=== PATIENT | female | born 1980 | race Hispanic/Latino ===

== ENCOUNTER → 2018-05-04 10:10 | Outpatient (REF) | payer BC, SELFPAY ==
--- NOTE | 2018-05-04 | DI.MG.S_ITS ---
BILATERAL DIGITAL SCREENING MAMMOGRAM 3D/2D WITH CAD: 05/04/2018 CLINICAL: Routine screening. Family history of breast cancer. Comparison is made to exams dated: 06/18/2015 mammogram and 12/11/2010 mammogram - [facility]. The tissue of both breasts is heterogeneously dense. This may lower the sensitivity of mammography. Current study was also evaluated with a Computer Aided Detection (CAD) system. No significant masses, calcifications, or other findings are seen in either breast. There has been no significant interval change. IMPRESSION: NEGATIVE There is no mammographic evidence of malignancy. A 1 year screening mammogram is recommended. NOTE: For mammograms, a report in lay terms will be sent to the patient. Approximately 15% of breast malignancies will not be visualized mammographically. In the management of a palpable breast mass, a negative mammogram must not discourage biopsy of a clinically suspicious lesion. Electronically Signed By: Christiana urena/tina:05/04/2018 10:46:16 copy to: PETEY GREEN letter sent: Normal Exam ACR BI-RADS Category 1: Negative 3341F
== END ==
LOC: MAMMO 10:10
PROVIDERS: Visit Provider Obstetrics & Gynecology
DX: Z12.31 Encounter for screening mammogram for malignant neoplasm of breast (principal); Z80.3 Family history of malignant neoplasm of breast
CPT/HCPCS: 77063; 77067

== ENCOUNTER 2019-10-02 15:41 | Emergency (ER) | payer SELFPAY ==
[2019-10-02 16:04] VITALS: BP 147/87; PULSE 97; RESP 15; TEMP 36.7; O2SAT 96; BMI 24.6
[2019-10-02 16:18] LABS: RBC Urine None Seen (0-5/HPF); WBC Urine None Seen (0-5/HPF)
[2019-10-02 16:48] LABS: Appearance Urine UA SL CLOUDY; Bilirubin Urine UA NEGATIVE (NEGATIVE); Color Urine UA YELLOW; Glucose Urine UA NEGATIVE (Negative); Ketones Urine UA 1+ (NEGATIVE); Leukocyte Esterase Urine UA NEGATIVE (NEGATIVE); Nitrite Urine UA NEGATIVE (Negative); Occult Blood Urine UA TRACE-INTACT (Negative); Protein Urine UA NEGATIVE (Negative); Urobilinogen Urine UA 0.2 E.U./dL (0.2); pH Urine UA 7.5 (4.5-8.0)
[2019-10-02 17:00] LABS: Amorphous Sediment Urine 2+; Bacteria Urine Occasional (0-1); Squamous Epithelial Cell Urine 1-5 /HPF (0-5/HPF); Transitional Epi Cells Urine 0-1/HPF (0-5/HPF)
[2019-10-02 17:01] LABS: Culture Indicated Urine Cult Not Indicated
--- NOTE | 2019-10-02 17:17 | ED.RECABL ---
HPI - Recheck/Abnormal Lab/Rx General Chief Complaint: Recheck/Abnormal Lab/Rx Stated Complaint: possible UTI,given medicine,not getting better Time Seen by Provider: 10/02/19 16:19 Source: patient and family Mode of arrival: Ambulatory Limitations: language barrier History of Present Illness HPI narrative: Patient comes emergency department complaining of her stomach feeling hot and mild nausea since being diagnosed with vaginal candidiasis and bacterial vaginosis, and started on Diflucan and metronidazole. Patient states she was having these symptoms a little bit before starting the medications, but that it seems a lot worse now. Patient denies any fevers or chills. She states her original symptoms of left lower quadrant abdominal pain and vaginal itching are actually improving. She denies any dysuria. She has been on her medications for the last 2 days. Patient states that she does not have any pain or nausea right at this moment--just a feeling of her stomach being ?hot?. She has not been taking the omeprazole she was prescribed. Patient does not have any history of ulcers. She is otherwise healthy. No other complaints at this time. Related Data Previous Rx's Medication Instructions Recorded miconazole nitrate [Micatin] 1 danitza TP BID #14 gm 08/06/17 ondansetron 4 mg PO Q6H PRN #10 tab 10/02/19 Allergies Allergy/AdvReac Type Severity Reaction Status Date / Time No Known Drug Allergies Allergy Verified 10/02/19 16:03 Review of Systems Constitutional Constitutional: Denies chills, Denies fatigue, Denies fever(s), Denies frequent falls, Denies lethargy and Denies weakness Eyes Eyes: Denies change in vision, Denies eye discharge, Denies irritation and Denies loss of vision ENT Ears, Nose, Mouth, and Throat: Denies change in voice, Denies dizziness, Denies neck pain, Denies sore throat and Denies throat swelling Cardiovascular Cardiovascular: Denies chest pain, Denies irregular heart rhythm, Denies lightheadedness, Denies palpitations, Denies dyspnea, Denies dyspnea on exertion and Denies orthopnea Respiratory Respiratory: Denies cough, Denies dyspnea, Denies dyspnea on exertion and Denies wheezing Gastrointestinal Gastrointestinal: Reports abdominal pain (Stomach feeling ?hot?), Denies change in bowel habits, Denies diarrhea, Reports nausea and Denies vomiting Genitourinary Genitourinary: Denies hematuria, Denies flank pain, Denies urinary incontinence and Denies urinary urgency Musculoskeletal Musculoskeletal: Denies back pain, Denies muscle weakness, Denies neck pain, Denies numbness and Denies tingling Integumentary/Breasts Skin/Breast: Denies pruritus, Denies erythema, Denies rash and Denies wounds Neurologic Neurologic: Denies behavioral changes, Denies confusion, Denies dizziness, Denies frequent falls, Denies loss of vision, Denies numbness, Denies tingling and Denies weakness Psychiatric Psychiatric: Denies anxiety, Denies behavioral changes, Denies confusion, Denies depression, Denies homicidal ideation and Denies suicidal ideation Endocrine Endocrine: Denies fatigue, Denies flushing and Denies palpitations Hematologic/Lymphatic Hematologic/Lymphatic: Denies easy bruising Allergic/Immunologic Allergic/Immunologic: Denies urticaria, Denies throat swelling and Denies wheezing Patient History Medical History (Updated 10/02/19 @ 17:21 by Britni Alvarado MD) Healthy adult (Acute) Social History (Updated 10/02/19 @ 17:21 by Britni Alvarado MD) Smoking Status: Never smoker Exam Initial Vital Signs Initial Vital Signs: Vital Signs Temperature 98.0 F 10/02/19 16:04 Pulse Rate 97 H 10/02/19 16:04 Respiratory Rate 15 10/02/19 16:04 Blood Pressure 147/87 H 10/02/19 16:04 Pulse Oximetry 96 10/02/19 16:04 Const General: cooperative and well developed Nutritional Appearance: well nourished Orientation: alert, awake, oriented x3 and not confused [facility] Head: normocephalic and atraumatic Ears: external ears normal and TM's normal bilaterally Nose: external nose normal and No nasal discharge Face and sinus: sinuses nontender, face symmetric, no sinus tenderness and No dry mucous membranes Mouth: oral mucosae normal and moist mucous membranes Teeth and gingiva: dentition normal Throat: tonsils normal and uvula midline Eyes General: appearance normal, both eyes and all related structures Eyelids: eyelids normal Conjunctivae: conjunctivae normal Sclera: sclerae normal Pupils: PERRL EOM: EOM intact bilaterally Neck Neck: normal visual inspection, trachea midline, No lymphadenopathy, No midline deformity and No JVD Lymphatic: No lymphedema Chest Chest: normal inspection of the chest Resp Effort & Inspection: normal respiratory effort, able to speak in complete sentences, no respiratory distress and no use of accessory muscles Auscultation: clear to auscultation bilaterally, no rales, no rhonchi and no wheezes Cardio Rate: regular rate Rhythm: regular rhythm Heart Sounds: no click, no gallops, no murmurs and no rubs Pulses: normal peripheral pulses GI Inspection: non-distended Palpation: soft, no hepatosplenomegaly, No guarding, No pulsatile mass and No tender Back/Spine/Pelvis Back: No CVA tenderness Cervical Spine: cervical ROM normal and No pain with cervical ROM Thoracic/Lumbar Spine: thoracic and lumbar spine normal to inspection Skin General: no rashes or lesions noted, No jaundice and No petechiae Neuro General: alert, oriented x3, gait normal and no focal motor deficits Speech: speech normal Extrem General: full ROM, no clubbing, cyanosis or edema, no pedal edema and no calf tenderness Psych Appearance: well kempt Mental Status: mental status grossly normal Attitude: cooperative Thought Content: normal and suicidality Judgment: judgment good Course Course Course Narrative: I had a very long discussion with this patient with her brother translating, as patient is [place]-speaking only. I explained to her that the infections that she has can cause some of the stomach upset, but in addition, is very common for antibiotics to cause some digestive system side effects, as well. I have reassured the patient that once she finishes her courses of antibiotics, her stomach symptoms should be expected to down. We have discussed that it is important for the patient to take her omeprazole along with the antibiotics to help mitigate these side effects. I have also discussed with her that she can get Maalox over the counter, and may also use yogurt to act as a probiotic and help soothe her stomach, as well. I do not find any evidence of worsening infection in the patient. Her symptoms are actually mildly improving with regard to the candidiasis and bacterial vaginosis. We have discussed home management of the symptoms, as well as the usual indications for return. Orders Ordered: ED Orders 10/02/19 16:16 Urinalysis and Microscopic Stat Vital Signs Vital signs: Vital Signs - 8 hr 10/02/19 16:04 Temperature 98.0 F Pulse Rate 97 H Respiratory Rate 15 Blood Pressure 147/87 H Pulse Oximetry 96 MDM - Recheck/Abnormal Lab/Rx Medical Records Attestation: I reviewed the patient's medical records. Lab Data Attestation: I reviewed the patient's lab results. Labs: Lab Results 10/02/19 Range/Units 16:16 Urine Color Yellow Urine Appearance Sl cloudy Urine pH 7.5 (4.5-8.0) Ur Specific Fil[place] 1.020 (1.000-1.035) Urine Protein Negative (Negative) Urine Glucose (UA) Negative (Negative) g/dL Urine Ketones 1+ H (NEGATIVE) Urine Occult Blood Trace-intact (Negative) Urine Nitrate Negative (Negative) Urine Bilirubin Negative (NEGATIVE) Urine Urobilinogen 0.2 (0.2) E.U./dL Ur Leukocyte Esterase Negative (NEGATIVE) Urine RBC None seen (0-5/HPF) Urine WBC None seen (0-5/HPF) Ur Squamous Epith Cells 1-5 /hpf (0-5/HPF) Ur Transition Epith Cell 0-1/hpf (0-5/HPF) Amorphous Sediment 2+ Urine Bacteria Occasional (0-1) (None) Ur Culture Indicated? Cult not indicated Discharge Plan Departure Patient Disposition: Home Clinical Impression: Adverse drug effect Qualifiers: Encounter type: initial encounter Qualified Code(s): T50.905A - Adverse effect of unspecified drugs, medicaments and biological substances, initial encounter Discharge Date/Time: 10/02/19 17:23 Instructions: DI for Adverse Drug Reaction -- GI Intolerance Activity Restrictions/Additional Instructions: It is very common to experience somewhat of an upset stomach when you are on antibiotics. You need to finish your antibiotics, and you will most likely have an upset stomach until the antibiotics are done. However, you can expect that your stomach will get better in the next few days after you finish the antibiotics. You may take the nausea medication and antacid medicine to help with your stomach symptoms. You may also take Maalox or Mylanta [id number] to help with your stomach, also.. Prescriptions: New ondansetron 4 mg tablet,disintegrating 4 mg PO Q6H PRN (Reason: nausea and vomiting) Qty: 10 RF: 0 No Action miconazole nitrate [Micatin] 2 % cream 1 danitza TP BID Qty: 14 RF: 2
[2019-10-02 17:21] VITALS: BP 94/64; PULSE 62; RESP 15; O2SAT 99
== END 2019-10-02 17:23 | disposition home or self-care (01) ==
PROVIDERS: Emergency Provider Emergency Medicine
DX: T78.40XA Allergy, unspecified, initial encounter (principal); T50.905A Adverse effect of unspecified drugs, medicaments and biological substances, initial encounter
CPT/HCPCS: 81001; 99282

== ENCOUNTER → 2020-05-14 16:56 | Outpatient (CLI) | payer BC, SELFPAY ==
--- NOTE | 2020-05-14 17:07 | DI.MG.S_ITS ---
BILATERAL DIGITAL SCREENING MAMMOGRAM 3D/2D WITH CAD: 05/14/2020 CLINICAL: Routine screening. Family history of breast cancer. Comparison is made to exams dated: 05/04/2018 mammogram - [facility], 06/18/2015 mammogram, and 12/11/2010 mammogram - [facility]. The tissue of both breasts is extremely dense, which lowers the sensitivity of mammography. Current study was also evaluated with a Computer Aided Detection (CAD) system. No significant masses, calcifications, or other findings are seen in either breast. There has been no significant interval change. IMPRESSION: NEGATIVE There is no mammographic evidence of malignancy. A 1 year screening mammogram is recommended. This exam was interpreted at Station ID: [id number]. NOTE: For mammograms, a report in lay terms will be sent to the patient. Approximately 15% of breast malignancies will not be visualized mammographically. In the management of a palpable breast mass, a negative mammogram must not discourage biopsy of a clinically suspicious lesion. Electronically Signed By: Trenton pantoja/tina:05/15/2020 08:20:59 letter sent: Normal Exam ACR BI-RADS Category 1: Negative 3341F
== END ==
PROVIDERS: Referring Provider Pediatrics Pediatric Rheumatology; Visit Provider Pediatrics Pediatric Rheumatology
DX: Z12.31 Encounter for screening mammogram for malignant neoplasm of breast (principal); Z80.3 Family history of malignant neoplasm of breast
CPT/HCPCS: 77063; 77067

== ENCOUNTER 2024-08-31 18:43 | Emergency (ER) | payer OTHER, MEDICAID, SELFPAY ==
[2024-08-31 19:33] VITALS: BP 146/86; PULSE 100; RESP 17; TEMP 36.3; O2SAT 100
[2024-08-31 22:00] VITALS: BP 118/76; PULSE 77; RESP 18; TEMP 36.3; O2SAT 98
--- NOTE | 2024-09-01 01:49 | ED.EXTPRO ---
HPI - Extremity Problem General Chief complaint: Extremity Problem,Nontraumatic Stated complaint: both legs numb L more than R sometimes pain Source: patient Mode of arrival: Ambulatory History of Present Illness HPI Narrative: Patient left without seeing provider Related Data Home Medications Medication Instructions Recorded Confirmed famotidine 20 mg tablet 20 mg PO BID 08/31/24 08/31/24 Previous Rx's Medication Instructions Recorded miconazole nitrate 2 % topical 1 danitza TP BID ##14 08/06/17 cream (Micatin) ondansetron 4 mg disintegrating 4 mg PO Q6H PRN nausea and 10/02/19 tablet vomiting #10 tabs Allergies Allergy/AdvReac Type Severity Reaction Status Date / Time No Known Drug Allergies Allergy Verified 08/31/24 19:36 Patient History Medical History Healthy adult Social History (Updated 10/02/19 @ 17:21 by Britni Alvarado MD) Smoking Status: Never smoker Smoking Status: Never smoker Substance Use Type: does not use Exam Initial Vital Signs Initial Vital Signs: Vital Signs Temperature 97.3 F L 08/31/24 19:33 Pulse Rate 100 H 08/31/24 19:33 Respiratory Rate 17 08/31/24 19:33 Blood Pressure 146/86 H 08/31/24 19:33 Pulse Oximetry 100 08/31/24 19:33 Oxygen Delivery Method Room Air 08/31/24 19:33 Course Vital Signs Vital signs: Vital Signs - 8 hr 08/31/24 19:33 08/31/24 22:00 Temperature 97.3 F L 97.4 F L Pulse Rate 100 H 77 Respiratory Rate 17 18 Blood Pressure 146/86 H 118/76 Pulse Oximetry 100 98 Oxygen Delivery Method Room Air Room Air Discharge Plan Departure Patient Disposition: Left Without Being Seen Clinical Impression: Patient left without being seen Prescriptions: No Action miconazole nitrate [Micatin] 2 % cream 1 danitza TP BID Qty: 14 2RF ondansetron 4 mg tablet,disintegrating 4 mg PO Q6H PRN (Reason: nausea and vomiting) Qty: 10 0RF famotidine 20 mg tablet 20 mg PO BID
== END 2024-08-31 22:22 | disposition left against medical advice (07) ==
PROVIDERS: Emergency Provider Emergency Medicine
CPT/HCPCS: 99281

== ENCOUNTER 2024-09-04 16:45 | Emergency (ER) | payer OTHER, MEDICAID, SELFPAY ==
[2024-09-04 16:51] VITALS: BP 148/68; PULSE 85; RESP 18; TEMP 36.4; O2SAT 100; BMI 25.4
--- NOTE | 2024-09-04 17:54 | ED_ITS ---
<Statement entered by Swathi Lopez DO - 09/18/24 07:31> Signing this chart purely for administrative purposes. I was not working this day, I was not involved in patient care HPI - Extremity Problem <Grace Castro PA-C - Last Filed: 09/04/24 18:45> General Chief complaint: Extremity Problem,Nontraumatic Stated complaint: legs feeling numb x7 days Time Seen by Provider: 09/04/24 17:48 Source: family Mode of arrival: Ambulatory History of Present Illness HPI Narrative: Patient is a pleasant 44-year-old female Venezuelan-speaking only presents to the emergency department with her brother with complaints of numbness and tingling and coldness to the left lower extremity for the past 5-6 days, with now worsening and traveling numbness up the left lower extremity. And then presents and complains of left upper extremity numbness and left neck pain while I am sitting and talking with her. Patient states the discomfort is numbness, it is not painful, it has not dull, sharp, does not radiate anywhere, it has not pins or needles. She states that her toes are cold, she does not have coldness to the hands. The coldness has been worsening. Patient also complains of some left medial knee pain with no recent injury trauma or fall. Patient complains of a headache yesterday, took Tylenol that did help with the headache but not with the knee pain or the numbness in the left lower extremity. Patient denies any major medical issues, she just was seen by her provider and had a workup that was negative for any substantial issues, she has not taken any major medicines, she does not smoke no recreational drug use no heavy alcohol. She has not currently taking any estrogen supplementation or using any estrogen cream. She takes several vitamins [id number] as supplementation. No recent travel, no recent antibiotics, no recent sick contacts. No recent upper respiratory symptoms. No changes in vision, dizziness, lightheadedness or weakness. No recent cough, cold or fever. No nausea, vomiting, diarrhea or abdominal pain. Occasional constipation. No urinary frequency urgency or painful urination. No musculoskeletal back pain. No recent trauma, assault, fall, or being involved in a motor vehicle accident. She has had no surgical interventions in the lower extremities. No history of DVT or pulmonary embolism. Related Data Home Medications Medication Instructions Recorded Confirmed famotidine 20 mg tablet 20 mg PO BID 08/31/24 08/31/24 Previous Rx's Medication Instructions Recorded miconazole nitrate 2 % topical 1 danitza TP BID ##14 08/06/17 cream (Micatin) ondansetron 4 mg disintegrating 4 mg PO Q6H PRN nausea and 10/02/19 tablet vomiting #10 tabs Allergies Allergy/AdvReac Type Severity Reaction Status Date / Time No Known Drug Allergies Allergy Verified 09/04/24 17:05 Review of Systems <Grace Castro PA-C - Last Filed: 09/04/24 18:45> Review of Systems Narrative: Negative except as above Musculoskeletal Comments: Coldness to the left foot, numbness in the foot that now is starting to travel up the left lower extremity, and then numbness to the left upper extremity and then pain into the neck while were sitting and talking. Left medial knee pain Neurologic Comments: Headache yesterday. Endocrine Comments: Cold extremities, but he would left great it Patient History <Grace Castro PA-C - Last Filed: 09/04/24 18:45> Medical History Healthy adult Social History Smoking Status: Never smoker Smoking Status: Never smoker alcohol intake frequency: a few times a month Substance Use Type: does not use Exam <Grace Castro PA-C - Last Filed: 09/04/24 18:45> Initial Vital Signs Initial Vital Signs: Vital Signs Temperature 97.6 F 09/04/24 16:51 Pulse Rate 85 09/04/24 16:51 Respiratory Rate 18 09/04/24 16:51 Blood Pressure 148/68 H 09/04/24 16:51 Pulse Oximetry 100 09/04/24 16:51 Oxygen Delivery Method Room Air 09/04/24 16:51 Reviewed Const General: cooperative, healthy appearing, comfortable, well developed, well groomed, No acute distress, No in distress, No anxious, diaphoretic, No disheveled, No frail appearing, No ill appearing and No lethargic HENTN Head: normal to inspection, normocephalic and atraumatic Nose: external nose normal and nares normal Eyes General: Yes appearance normal, both eyes and all related structures Visual Lucas: normal visual lucas by confrontation Eyelids: eyelids normal Conjunctivae: conjunctivae normal Sclera: sclerae normal Cornea: corneas normal Pupils: PERRL EOM: EOM intact bilaterally Other: Please see visual acuity Neck Other: Full range of motion No carotid bruits Resp Auscultation: clear to auscultation bilaterally, no crackles, no rales, no rhonchi, no wheezes, no rubs and no vesicular sounds Tactile Fremitus: tactile fremitus absent Cardio Rate: regular rate Rhythm: regular rhythm Heart Sounds: S1 normal, S2 normal, no click, no gallops, no murmurs and no rubs Skin Other: Warm pink and dry The feet are cold to touch, cap refill is slightly delayed Neuro General: patient alert, patient awake, patient oriented x3, oriented, gait normal, tone normal and moves all extremities Cranial Nerves: CN's II-XI intact bilaterally Cognition: normal cognition Speech: speech normal Gait: normal gait Motor: muscle tone normal throughout, strength 5/5 throughout, no pronator drift, no movement abnormalities noted, No fasciculations, No movement abnormality noted, No tremor, No muscle tone abnormal, No pronator drift, No strength abnormal and No asterixis Extrem Other: Patient has medial left knee pain no soft tissue swelling, no ecchymosis, no bruising, no signs or symptoms of joint effusion on exam. Range of motion is preserved, strength is preserved. Range of motion, strength, pulses, cap refill is preserved in the upper extremities and lower extremities bilaterally. Psych Other: Appearance, mental status, speech, movement, mood, affect, attitude, thought process, thought content and judgment are all within normal limits. <Nirav Van MD - Last Filed: 09/07/24 23:22> Initial Vital Signs Initial Vital Signs: Vital Signs Temperature 97.6 F 09/04/24 16:51 Pulse Rate 85 09/04/24 16:51 Respiratory Rate 18 09/04/24 16:51 Blood Pressure 148/68 H 09/04/24 16:51 Pulse Oximetry 100 09/04/24 16:51 Oxygen Delivery Method Room Air 09/04/24 16:51 <Swathi Lopez DO - Last Filed: 09/18/24 07:32> Initial Vital Signs Initial Vital Signs: Vital Signs Temperature 97.6 F 09/04/24 16:51 Pulse Rate 85 09/04/24 16:51 Respiratory Rate 18 09/04/24 16:51 Blood Pressure 148/68 H 09/04/24 16:51 Pulse Oximetry 100 09/04/24 16:51 Oxygen Delivery Method Room Air 09/04/24 16:51 Scores <Grace Castro PA-C - Last Filed: 09/04/24 18:45> ABCD2 Citation: 0 low score SAMI 1.3 normal left side GCS Citation: 15 Course <Grace Castro PA-C - Last Filed: 09/04/24 18:45> Orders Ordered: Discontinued Medications Aspirin (Aspirin Ec 81 Mg Tablet) 81 mg PO NOW ONE Stop: 09/04/24 18:02 Last Admin: 09/04/24 18:05 Dose: Not Given Documented By: GREG Vital Signs Vital signs: Vital Signs - 8 hr 09/04/24 18:40 09/04/24 19:59 Temperature 98.2 F Pulse Rate 81 94 H Respiratory Rate 19 18 Blood Pressure 140/70 137/68 Pulse Oximetry 96 100 Oxygen Delivery Method Room Air Room Air Reviewed <Nirav Van MD - Last Filed: 09/07/24 23:22> Orders Ordered: Discontinued Medications Aspirin (Aspirin Ec 81 Mg Tablet) 81 mg PO NOW ONE Stop: 09/04/24 18:02 Last Admin: 09/04/24 18:05 Dose: Not Given Documented By: GREG Vital Signs Vital signs: Vital Signs - 8 hr 09/04/24 18:40 09/04/24 19:59 Temperature 98.2 F Pulse Rate 81 94 H Respiratory Rate 19 18 Blood Pressure 140/70 137/68 Pulse Oximetry 96 100 Oxygen Delivery Method Room Air Room Air <Swathi Lopez DO - Last Filed: 09/18/24 07:32> Orders Ordered: Discontinued Medications Aspirin (Aspirin Ec 81 Mg Tablet) 81 mg PO NOW ONE Stop: 09/04/24 18:02 Last Admin: 09/04/24 18:05 Dose: Not Given Documented By: GREG Vital Signs Vital signs: Vital Signs - 8 hr 09/04/24 18:40 09/04/24 19:59 Temperature 98.2 F Pulse Rate 81 94 H Respiratory Rate 19 18 Blood Pressure 140/70 137/68 Pulse Oximetry 96 100 Oxygen Delivery Method Room Air Room Air MDM - Extremity (Nontraumatic) <Grace Castro PA-C - Last Filed: 09/04/24 18:45> Lab Data 09/04/24 18:09 09/04/24 18:09 Labs: Lab Results 09/04/24 Range/Units 18:09 WBC 6.4 (4.5-11.0) X10^3/uL RBC 4.08 (4.0-5.2) X10^6/uL Hgb 11.8 L (12.0-16.0) g/dL Hct 35.3 L (36-46) % MCV 86.5 (80-100) fL MCH 29.0 (26-34) PG MCHC 33.5 (30-36) % RDW 14.8 (11.6-14.8) % Plt Count 354 (150-400) X10^3/uL Neut % (Auto) 71.7 (50-75) % Lymph % (Auto) 20.6 L (25-40) % [place] % (Auto) 6.7 (3-14) % Eos % (Auto) 0.3 L (2-4) % Baso % (Auto) 0.7 (0-2) % Neut # (Auto) 4600 (0907-6599) /uL Lymph # (Auto) 1300 (1438-0982) /uL [place] # (Auto) 400 (0-900) /uL Eos # (Auto) 0 (0-450) /uL Baso # (Auto) 0 (0-100) /uL PT 12.3 (9.4-12.5) SECONDS INR 1.1 (0.9-1.3) APTT 33 (25.1-36.5) SECONDS Sodium 137 (137-145) mmol/L Potassium 3.6 (3.4-5.1) mmol/L Chloride 107 (98-107) mmol/L Carbon Dioxide 22 (22-32) mmol/L BUN 8 (7-17) mg/dL Creatinine 1.03 (0.52-1.04) mg/dL Estimated GFR > 60 (>60) mL/min BUN/Creatinine Ratio 7.8 (6-22) Glucose 132 H (70-100) mg/dL Calcium 8.7 (8.4-10.2) mg/dL Total Bilirubin 0.4 (0.2-1.3) mg/dL AST 25 (14-36) IU/L ALT 15 (<35) IU/L Alkaline Phosphatase 69 (38-126) U/L Troponin I < 0.012 (0.01-0.034) ng/mL Total Protein 7.8 (6.3-8.2) g/dL Albumin 4.6 (3.5-5.0) g/dL Globulin 3.2 (1.7-4.1) g/dL Albumin/Globulin Ratio 1.4 (1.0-2.8) Vitamin B12 317 (239-931) pg/mL Point of Care Testing Test Results Negative Urine Dip Bedside Urine Glucose Negative Bedside Urine Bilirubin - Negative Bedside Urine Ketone - Negative Urine Specific [place] 1.005 Bedside Urine Occult Blood - Negative Bedside Urine pH 7 Bedside Urine Protein - Negative Bedside Urine Urobilinogen - Negative Bedside Urine Nitrite - Negative Bedside Urine Leukocytes - Negative Esterase MDM Narrative Medical decision making narrative: Patient is a pleasant 44-year-old female that presents to the emergency room department with her brother with complaints of left greater than right numbness to the lower extremities cold feet, now numbness that is creeping up the left side of her leg, and the numbness in the left upper extremity up into the left neck while sitting and talking. With the headache that she had yesterday. No substantial major medical problems no substantial history. Exam is negative for any substantial major issues however with her physical complaints, concerning for possible underlying abnormalities. IV is placed CBC CMP INR PTT Troponin EKG Baby aspirin held Head CT CT angio head and neck I spoke with the patient since she is a Venezuelan-speaking only and she says she would like to do a full workup ABIs Spoke with Dr. Van he will take over the patient <Nirav Van MD - Last Filed: 09/07/24 23:22> Lab Data Attestation: I reviewed the patient's lab results. Lab results narrative: Rehan review of lab results. White blood cell count 6400, hemoglobin 11.8, platelets [id number] adequate. Basic metabolic panel unremarkable. Liver functions normal. Troponin negative. Vitamin B12 level was added and was normal. Urine dip negative. Labs: Lab Results 09/04/24 Range/Units 18:09 WBC 6.4 (4.5-11.0) X10^3/uL RBC 4.08 (4.0-5.2) X10^6/uL Hgb 11.8 L (12.0-16.0) g/dL Hct 35.3 L (36-46) % MCV 86.5 (80-100) fL MCH 29.0 (26-34) PG MCHC 33.5 (30-36) % RDW 14.8 (11.6-14.8) % Plt Count 354 (150-400) X10^3/uL Neut % (Auto) 71.7 (50-75) % Lymph % (Auto) 20.6 L (25-40) % [place]oyah % (Auto) 6.7 (3-14) % Eos % (Auto) 0.3 L (2-4) % Baso % (Auto) 0.7 (0-2) % Neut # (Auto) 4600 (6739-1055) /uL Lymph # (Auto) 1300 (6349-3135) /uL [place] # (Auto) 400 (0-900) /uL Eos # (Auto) 0 (0-450) /uL Baso # (Auto) 0 (0-100) /uL PT 12.3 (9.4-12.5) SECONDS INR 1.1 (0.9-1.3) APTT 33 (25.1-36.5) SECONDS Sodium 137 (137-145) mmol/L Potassium 3.6 (3.4-5.1) mmol/L Chloride 107 (98-107) mmol/L Carbon Dioxide 22 (22-32) mmol/L BUN 8 (7-17) mg/dL Creatinine 1.03 (0.52-1.04) mg/dL Estimated GFR > 60 (>60) mL/min BUN/Creatinine Ratio 7.8 (6-22) Glucose 132 H (70-100) mg/dL Calcium 8.7 (8.4-10.2) mg/dL Total Bilirubin 0.4 (0.2-1.3) mg/dL AST 25 (14-36) IU/L ALT 15 (<35) IU/L Alkaline Phosphatase 69 (38-126) U/L Troponin I < 0.012 (0.01-0.034) ng/mL Total Protein 7.8 (6.3-8.2) g/dL Albumin 4.6 (3.5-5.0) g/dL Globulin 3.2 (1.7-4.1) g/dL Albumin/Globulin Ratio 1.4 (1.0-2.8) Vitamin B12 317 (239-931) pg/mL Point of Care Testing Test Results Negative Urine Dip Bedside Urine Glucose Negative Bedside Urine Bilirubin - Negative Bedside Urine Ketone - Negative Urine Specific [place] 1.005 Bedside Urine Occult Blood - Negative Bedside Urine pH 7 Bedside Urine Protein - Negative Bedside Urine Urobilinogen - Negative Bedside Urine Nitrite - Negative Bedside Urine Leukocytes - Negative Esterase Imaging Data CT scan - head: Radiologist's Impression: [address] [address] [address] Scan Report Signed Patient: Renée Shay MR#: [id number] : 1980 Acct:[id number] Age/Sex: 44 / F Date of Service: 09/04/24 Loc: ED Accession Number: [id number] Procedure: CT head/brain wo con Ordering Provider: Grace Castro PA-C PROCEDURE: CT HEAD/BRAIN WO CON INDICATIONS: Upper extremity numbness, lower extremity numbness, and left TECHNIQUE: Noncontrast 4.5 mm thick angled axial sections acquired from the foramen magnum to the vertex, with coronal and sagittal reformats. For radiation dose reduction, the following was used: automated exposure control, adjustment of mA and/or kV according to patient size. COMPARISON: None. FINDINGS: Image quality: Diagnostic. CSF spaces: Basal cisterns are patent. No extra-axial fluid collections. Ventricles are normal in size and shape. Brain: No midline shift. No intracranial masses or hemorrhage. Min-white matter interface is normal. Skull and face: Calvarium and visualized facial bones are intact, without suspicious lesions. Sinuses: Visualized sinuses and mastoids are clear. IMPRESSION: No acute intracranial pathology. Dictated by: Darryn Lewis M.D. on 09/04/2024 at 19:20 Approved by: Darryn Lewis M.D. on 09/04/2024 at 19:20 CTA - brain/neck: Radiologist's Impression: [address] [address] [address] Scan Report Signed Patient: Renée Shay MR#: [id number] : 1980 Acct:[id number] Age/Sex: 44 / F Date of Service: 09/04/24 Loc: ED Accession Number: [id number] Procedure: CT angio head and neck Ordering Provider: Grace Castro PA-C PROCEDURE: CT ANGIO HEAD AND NECK INDICATIONS: Headache yesterday left upper extremity numbness and left TECHNIQUE: After the administration of intravenous contrast, 1 mm thick sections acquired from the aortic arch through the [place] of [place]. 3-dimensional ayongcg-aluoihxkb-uugbshxcwe (MIP) and/or volume rendering reformats were acquired of the central intracranial vasculature and neck separately. For radiation dose reduction, the following was used: automated exposure control, adjustment of mA and/or kV according to patient size. COMPARISON: [facility], CT, CT HEAD/BRAIN WO CON, 09/04/2024, 18:54. FINDINGS: Image quality: Diagnostic. BRAIN: CSF spaces: Ventricles are normal in size and shape. Basal cisterns are patent. No extra-axial fluid collections. Brain: No significant abnormality of the brain can be seen. Skull and face: Calvarium and facial bones appear intact, without suspicious lesions. Orbits appear normal. Sinuses: Sinuses and mastoids are clear. HEAD CT ANGIOGRAPHY: Anterior circulation: Intracranial internal carotid arteries are normal in size and flow. The flow within the paired anterior cerebral arteries is normal and symmetric. The flow within the middle cerebral arteries is normal and symmetric. The anterior communicating artery is seen. No aneurysms are seen. Posterior circulation: Visualized portions of the vertebral arteries demonstrate normal caliber, and join to form a normal appearing basilar artery. Flow within the posterior cerebral arteries is normal and symmetric. No aneurysms are seen. NECK CT ANGIOGRAPHY: Carotid system: The great vessels demonstrate a conventional anatomy as they arise from the aortic arch. The origins of the common carotid arteries appear patent. The common carotid arteries demonstrate normal caliber and courses. The bifurcation regions are both widely patent. The internal carotid arteries demonstrate normal calibers and courses. Posterior circulation: The origins of the vertebral arteries both appear widely patent. The more superior extracranial portions of both vertebral arteries also demonstrate normal courses and calibers. They join to form a normal appearing basilar artery. Soft tissues: Visualized neck soft tissues demonstrate no suspicious abnormalities. Bones: No suspicious bony lesions. Visualized cervical spine appears normally aligned. IMPRESSION: No significant intracranial arterial abnormality is seen. No significant abnormality is seen within the arteries of the neck. Any quantitative measurements of stenosis were performed using NASCET criteria. Dictated by: Darryn Lewis M.D. on 09/04/2024 at 19:24 Approved by: Darryn Lewis M.D. on 09/04/2024 at 19:26 [facility] Narrative Medical decision making narrative: Patient is a pleasant 44-year-old female that presents to the emergency room department with her brother with complaints of left greater than right numbness to the lower extremities cold feet, now numbness that is creeping up the left side of her leg, and the numbness in the left upper extremity up into the left neck while sitting and talking. With the headache that she had yesterday. No substantial major medical problems no substantial history. Exam is negative for any substantial major issues however with her physical complaints, concerning for possible underlying abnormalities. IV is placed CBC CMP INR PTT Troponin EKG Baby aspirin held Head CT CT angio head and neck I spoke with the patient since she is a Venezuelan-speaking only and she says she would like to do a full workup ABIs Spoke with Dr. Van he will take over the patient 09/04/2024, 7:00 p.m.Rehan. Sign-out from TANJA Castro. Assumed care. Independently seen by me. CT head noncontrast study, CT angiogram head and neck vessels ordered from TANJA Castro in Urgent Care, results pending. History obtained by me independently through brother at bedside who translated, offered professional translation services, which patient declined. 44-year-old female has had one weeks duration of cnbs-nntrdqf-tuyf-right lower extremity numbness. Back pain previously seems to be resolved. She did have right-sided headache couple of days ago that also seems to be resolved without specific treatment. No history of trauma or injuries. No history of strokes known. She has had intermittent left arm numbness as well. She had some neck discomfort and was worried that she might have had an injury 2 days ago, no specific injury recalled, seems to be moving her neck around well. No neck pain or back pain upper or lower at this time. No history of surgeries to her back. No history of strokes or cranial problems. No injury or trauma reported. No fevers or chills. No constitutional illness symptoms. Physical exam independently done by me, GENERAL: Well-developed patient, in mild distress. HEAD: Atraumatic. Normocephalic. EYES: Pupils equal round and reactive. Extraocular motions intact. No scleral icterus. No injection or drainage. ENT: Nose without bleeding, purulent drainage. Throat without erythema, tonsillar hypertrophy or exudate. Airway patent. NECK: Trachea midline. Non tender CARDIOVASCULAR: Regular rate and rhythm without murmurs, gallops, or rubs. RESPIRATORY: Clear to auscultation. Breath sounds equal bilaterally. No wheezes, rales, or rhonchi. GASTROINTESTINAL: Abdomen soft, non-tender, nondistended. EXTREMITIES: No edema or joint tenderness. BACK: Nontender without deformity or crepitance. No flank tenderness. Straight leg raise bilaterally without difficulty and brisk. NEURO: Clear speech. Pupils equal round reactive to light. Cranial nerve examination is reassuring and normal. Light touch finger upper mid lower face intact bilateral, as well as to upper extremities and lower extremities. Motor 5/5 upper extremities. Motor 5/5 lower extremities. Nqdtfg-ts-ocee testing excellent bilaterally. Clear speech as reported by brother. SKIN: No rash or erythema of visible areas Serum studies ordered at urgent care imported, unremarkable. Bilateral lower extremity numbness, vitamin B12 level also added, was also normal. CT head noncontrast study, no acute changes. See radiology report. CT head/neck angiogram, no acute changes, no narrowing, no thromboses. See radiology report. I discussed CT findings with patient, offered CT spinal imaging cervical spine thoracic spine lumbar spine. She does not want to do any additional CT imaging at this time. She also declines any further evaluation testing at this time, and would like to go home. She has not want any further diagnostic testing at this time. We did discuss MRI imaging of the brain and/or spinal cord which could be done for further workup, consider further workup as an outpatient. She stated that she would follow up with her doctor at her primary care [facility]. She will be discharged home per her request, home with her brother. Her brother reviewed discharge summary information dictated in Japanese. Discharged home with brother. Copy of CT reports from [facility] given to patient for follow up as well. <Swathi Lopez, DO - Last Filed: 09/18/24 07:32> Lab Data Labs: Lab Results 09/04/24 Range/Units 18:09 WBC 6.4 (4.5-11.0) X10^3/uL RBC 4.08 (4.0-5.2) X10^6/uL Hgb 11.8 L (12.0-16.0) g/dL Hct 35.3 L (36-46) % MCV 86.5 (80-100) fL MCH 29.0 (26-34) PG MCHC 33.5 (30-36) % RDW 14.8 (11.6-14.8) % Plt Count 354 (150-400) X10^3/uL Neut % (Auto) 71.7 (50-75) % Lymph % (Auto) 20.6 L (25-40) % [place] % (Auto) 6.7 (3-14) % Eos % (Auto) 0.3 L (2-4) % Baso % (Auto) 0.7 (0-2) % Neut # (Auto) 4600 (2654-8142) /uL Lymph # (Auto) 1300 (5705-6966) /uL [place] # (Auto) 400 (0-900) /uL Eos # (Auto) 0 (0-450) /uL Baso # (Auto) 0 (0-100) /uL PT 12.3 (9.4-12.5) SECONDS INR 1.1 (0.9-1.3) APTT 33 (25.1-36.5) SECONDS Sodium 137 (137-145) mmol/L Potassium 3.6 (3.4-5.1) mmol/L Chloride 107 (98-107) mmol/L Carbon Dioxide 22 (22-32) mmol/L BUN 8 (7-17) mg/dL Creatinine 1.03 (0.52-1.04) mg/dL Estimated GFR > 60 (>60) mL/min BUN/Creatinine Ratio 7.8 (6-22) Glucose 132 H (70-100) mg/dL Calcium 8.7 (8.4-10.2) mg/dL Total Bilirubin 0.4 (0.2-1.3) mg/dL AST 25 (14-36) IU/L ALT 15 (<35) IU/L Alkaline Phosphatase 69 (38-126) U/L Troponin I < 0.012 (0.01-0.034) ng/mL Total Protein 7.8 (6.3-8.2) g/dL Albumin 4.6 (3.5-5.0) g/dL Globulin 3.2 (1.7-4.1) g/dL Albumin/Globulin Ratio 1.4 (1.0-2.8) Vitamin B12 317 (239-931) pg/mL Point of Care Testing Test Results Negative Urine Dip Bedside Urine Glucose Negative Bedside Urine Bilirubin - Negative Bedside Urine Ketone - Negative Urine Specific [place] 1.005 Bedside Urine Occult Blood - Negative Bedside Urine pH 7 Bedside Urine Protein - Negative Bedside Urine Urobilinogen - Negative Bedside Urine Nitrite - Negative Bedside Urine Leukocytes - Negative Esterase Discharge Plan Departure Patient Disposition: Home Clinical Impression: Lower extremity numbness Activity Restrictions/Additional Instructions: 44-year-old female with no prior neurological problems, having ongoing left sided leg numbness, more so than right-sided leg numbness. No weakness. Prior right-sided headache resolved. Prior neck discomfort resolved. Screening blood work unremarkable today. CT head noncontrast study of the brain showed no acute changes, per Radiology report. CT scanning with IV contrast of the vessels of the brain and neck also were done, showed no narrowing or abnormal clotting or acute changes, per Radiology report. We did discuss further testing tonight that might include CT scanning of the upper mid and lower spine, declined for now. You felt reassured with workup as above, and wanted to go home. Further workup as an outpatient for now. Copies of your imaging reports provided for discharge. Could consider further workup as an outpatient that might include MRI brain and/or spine imaging, possible neurology consultation, other workup. Follow up with your primary care provider early this week as planned. Return earlier to this/nearest emergency department for any change worsening symptoms or any concerns prior Translation provided by patient brother at bedside [employer] tele-translation services offered but declined. Prescriptions: No Action miconazole nitrate [Micatin] 2 % cream 1 danitza TP BID Qty: 14 2RF ondansetron 4 mg tablet,disintegrating 4 mg PO Q6H PRN (Reason: nausea and vomiting) Qty: 10 0RF famotidine 20 mg tablet 20 mg PO BID Referrals: Miscellaneous,DoctorMD [Primary Care Provider] - Stand Alone Forms: Patient Portal/API ED Sign-out <Nirav Van MD - Last Filed: 09/07/24 23:22> Cosign ED Attending Cosignature Attestation: I was immediately available in the department for consultation. Patietn was singed out to me, see additional [facility] notes. <Swathi Lopez DO - Last Filed: 09/18/24 07:32> Sign Out Provider Sign Out Attestation: Signing this chart purely for administrative purposes. I was not working this day and not involved in patient care.
--- NOTE | 2024-09-04 18:01 | DI.CT.S_ITS ---
PROCEDURE: CT HEAD/BRAIN WO CON INDICATIONS: Upper extremity numbness, lower extremity numbness, and left TECHNIQUE: Noncontrast 4.5 mm thick angled axial sections acquired from the foramen magnum to the vertex, with coronal and sagittal reformats. For radiation dose reduction, the following was used: automated exposure control, adjustment of mA and/or kV according to patient size. COMPARISON: None. FINDINGS: Image quality: Diagnostic. CSF spaces: Basal cisterns are patent. No extra-axial fluid collections. Ventricles are normal in size and shape. Brain: No midline shift. No intracranial masses or hemorrhage. Min-white matter interface is normal. Skull and face: Calvarium and visualized facial bones are intact, without suspicious lesions. Sinuses: Visualized sinuses and mastoids are clear. IMPRESSION: No acute intracranial pathology. Dictated by: Darryn Lewis M.D. on 09/04/2024 at 19:20 Approved by: Darryn Lewis M.D. on 09/04/2024 at 19:20
--- NOTE | 2024-09-04 18:01 | DI.CT.S_ITS ---
PROCEDURE: CT ANGIO HEAD AND NECK INDICATIONS: Headache yesterday left upper extremity numbness and left TECHNIQUE: After the administration of intravenous contrast, 1 mm thick sections acquired from the aortic arch through the Hematite of [place]. 3-dimensional iywyrqx-afebzkecz-kdoijkemub (MIP) and/or volume rendering reformats were acquired of the central intracranial vasculature and neck separately. For radiation dose reduction, the following was used: automated exposure control, adjustment of mA and/or kV according to patient size. COMPARISON: [facility], CT, CT HEAD/BRAIN WO CON, 09/04/2024, 18:54. FINDINGS: Image quality: Diagnostic. BRAIN: CSF spaces: Ventricles are normal in size and shape. Basal cisterns are patent. No extra-axial fluid collections. Brain: No significant abnormality of the brain can be seen. Skull and face: Calvarium and facial bones appear intact, without suspicious lesions. Orbits appear normal. Sinuses: Sinuses and mastoids are clear. HEAD CT ANGIOGRAPHY: Anterior circulation: Intracranial internal carotid arteries are normal in size and flow. The flow within the paired anterior cerebral arteries is normal and symmetric. The flow within the middle cerebral arteries is normal and symmetric. The anterior communicating artery is seen. No aneurysms are seen. Posterior circulation: Visualized portions of the vertebral arteries demonstrate normal caliber, and join to form a normal appearing basilar artery. Flow within the posterior cerebral arteries is normal and symmetric. No aneurysms are seen. NECK CT ANGIOGRAPHY: Carotid system: The great vessels demonstrate a conventional anatomy as they arise from the aortic arch. The origins of the common carotid arteries appear patent. The common carotid arteries demonstrate normal caliber and courses. The bifurcation regions are both widely patent. The internal carotid arteries demonstrate normal calibers and courses. Posterior circulation: The origins of the vertebral arteries both appear widely patent. The more superior extracranial portions of both vertebral arteries also demonstrate normal courses and calibers. They join to form a normal appearing basilar artery. Soft tissues: Visualized neck soft tissues demonstrate no suspicious abnormalities. Bones: No suspicious bony lesions. Visualized cervical spine appears normally aligned. IMPRESSION: No significant intracranial arterial abnormality is seen. No significant abnormality is seen within the arteries of the neck. Any quantitative measurements of stenosis were performed using NASCET criteria. Dictated by: Darryn Lewis M.D. on 09/04/2024 at 19:24 Approved by: Darryn Lewis M.D. on 09/04/2024 at 19:26
--- NOTE | 2024-09-04 18:25 | PC.NURSE ---
left arm pressure: 112/76 left leg pressure: 149/70
[2024-09-04 18:26] LABS: Add Manual Diff / Slide Review NO; Basophils Absolute Auto 0 /uL (0-100); Basophils Percent Auto 0.7 % (0-2); Eosinophils Absolute Auto 0 /uL (0-450); Eosinophils Percent Auto 0.3 % (2-4); Hematocrit 35.3 % (36-46); Hemoglobin 11.8 g/dL (12.0-16.0); Lymphocytes Absolute Auto 1300 /uL (1100-4500); Lymphocytes Percent Auto 20.6 % (25-40); Mean Corpuscular HGB Conc 33.5 % (30-36); Mean Corpuscular Volume 86.5 fL (80-100); Monocytes Absolute Auto 400 /uL (0-900); Monocytes Percent Auto 6.7 % (3-14); Neutrophils Absolute Auto 4600 /uL (1500-7000); Neutrophils Percent Auto 71.7 % (50-75); Platelet Count 354 X10^3/uL (150-400); Red Blood Cell Count 4.08 X10^6/uL (4.0-5.2); Red Cell Distribution Width 14.8 % (11.6-14.8); White Blood Cell Count 6.4 X10^3/uL (4.5-11.0)
[2024-09-04 18:30] LABS: INR 1.1 (0.9-1.3); Prothrombin Time 12.3 SECONDS (9.4-12.5)
[2024-09-04 18:32] LABS: Alanine Aminotransferase 15 IU/L (<35); Albumin 4.6 g/dL (3.5-5.0); Albumin Globulin Ratio 1.4 (1.0-2.8); Alkaline Phosphatase 69 U/L (38-126); Aspartate Aminotransferase 25 IU/L (14-36); BUN Creatinine Ratio 7.8 (6-22); Bilirubin Total 0.4 mg/dL (0.2-1.3); Blood Urea Nitrogen 8 mg/dL (7-17); Calcium 8.7 mg/dL (8.4-10.2); Carbon Dioxide 22 mmol/L (22-32); Chloride 107 mmol/L (98-107); Estimated Glomerular Filt Rate > 60 mL/min (>60); Globulin 3.2 g/dL (1.7-4.1); Glucose 132 mg/dL (70-100); HEMOLYSIS < 15 (0-50); Potassium 3.6 mmol/L (3.4-5.1); Sodium 137 mmol/L (137-145); Total Protein 7.8 g/dL (6.3-8.2)
[2024-09-04 18:33] LABS: PTT Partial Thromboplastin Tim 33 SECONDS (25.1-36.5)
[2024-09-04 18:40] VITALS: BP 140/70; PULSE 81; RESP 19; O2SAT 96
[2024-09-04 18:43] LABS: Troponin I < 0.012 ng/mL (0.01-0.034)
[2024-09-04 19:59] VITALS: BP 137/68; PULSE 94; RESP 18; TEMP 36.8; O2SAT 100
[2024-09-04 23:42] LABS: Vitamin B12 317 pg/mL (239-931)
== END 2024-09-04 22:42 | disposition home or self-care (01) ==
PROVIDERS: Physician Assistant; Emergency Provider Emergency Medicine
DX: R20.0 Anesthesia of skin (principal); M54.2 Cervicalgia; R51.9 Headache, unspecified
CPT/HCPCS: 36415; 70450; 70496; 70498; 80053; 81003; 81025; 82607; 84484; 85025; 85610; 85730; 99283; 99284; Q9967